=== PATIENT | male | born 1970 | race Caucasian/White ===

== ENCOUNTER 2017-11-01 14:30 | Emergency (ER) | payer OTHER ==
[~2017-11-01] VITALS: Ht 172.7 cm; Wt 58.0 kg
[2017-11-01 15:07] VITALS: Ht 172.7 cm; Wt 58.0 kg
[2017-11-01 17:20] VITALS: BP 120/68
== END 2017-11-01 17:20 | disposition home or self-care (01) ==
LOC: ED 14:30
DX: M54.5 Low back pain (principal)
CPT/HCPCS: J1885